=== PATIENT | male | born 1960 | race Two or more races ===

== ENCOUNTER 2024-06-22 14:22 | Emergency (ER) | payer MEDICAID, SELFPAY ==
[2024-06-22 14:39] VITALS: BP 158/75; PULSE 63; RESP 19; TEMP 36.8; O2SAT 96; BMI 27.4
--- NOTE | 2024-06-22 14:43 | XR_ITS ---
Examination: Fingers, left hand first digit 3 views Technique: AP, oblique, lateral views left hand first digit 3 views. Exam date and time: June 22, 2024 1451 hours INDICATIONS: Laceration injury to the first digit today with pain FINDINGS: Soft tissue defect adjacent to the distal first metacarpal No fracture No opaque foreign body IMPRESSION: No opaque foreign body
--- NOTE | 2024-06-22 16:20 | EDNOTE_ITS ---
ED Wound/Laceration-RME/HPI General Chief Complaint: Wound/Laceration Stated Complaint: Left 1st digit laceration this AM, refered by PC Time Seen by Provider: 06/22/24 14:34 Source: patient Arrival date/time: 06/22/24 14:22 This is a 63-year-old male who presents to the emergency department with complaints of a laceration to his first digit left hand. Patient states he was using a saw to cut wood when he accidentally cut vertically on his left thumb. Patient is that he did states he has full range of motion/ and sensation of thumb. patient was seen at his PCPs office however they were unable to suture. Limitations: no limitations Related Data Previous Rx's ?Medication ?Instructions ?Recorded cephalexin 500 mg capsule 500 mg PO BID 5 days #10 caps 06/22/24 ibuprofen 800 mg tablet (IBU) 800 mg PO Q8H #20 tabs 06/22/24 Allergies Allergy/AdvReac Type Severity Reaction Status Date / Time Penicillins Allergy Verified 06/22/24 14:29 Review of Systems Review of Systems Systems Reviewed: All systems reviewed, normal except as documented Narrative Review of Systems: Gen: No fever, no chills, no weight loss EYES: No discharge, no visual changes, no pain HEENT: No ear pain, no congestion, no sore throat PULM: No shortness of breath, no cough, no congestion CV: No chest pain, no dyspnea on exertion, no palpitations GI: No nausea, no vomiting, no diarrhea, no pain, no constipation : No frequency, no urgency,? no dysuria Musc/skel: No joint pain, no back pain Skin: laceration thumb Psyc: No hallucinations, no depression Heme/Lymph: No easy bleeding or bruising tendencies Neuro: No weakness, no headache ED Exam General Limitations: Present no limitations General appearance: Present alert and in no apparent distress Head Head exam: Present atraumatic Eye Eye exam: Present normal appearance, PERRL and EOMI ENT ENT exam: Present normal exam, normal oropharynx and mucous membranes moist Neck Neck exam: Present normal inspection, full ROM and trachea midline Chest Chest inspection: Present normal inspection and symmetric chest wall rise Respiratory Respiratory exam: Present normal lung sounds bilaterally Cardiovascular Cardiovascular exam: Present regular rate, normal rhythm and normal heart sounds Abdominal Exam Abdominal exam: Present soft and normal bowel sounds Extremities Exam Extremities exam: Present normal inspection and full ROM Expanded Upper Extremity Exam Shoulder exam: Present normal inspection Arm exam: Present normal inspection Elbow exam: Present normal inspection Hand L/R back image: 2 1. +3cm laceration noted to left medial aspect of 1st digit. CMS intact. Back Exam Back exam: Present normal inspection and full ROM Neurological Exam Neurological exam: Present alert, oriented X3 and CN II-XII intact Psychiatric Psychiatric exam: Present normal affect and normal mood Skin Skin exam: Present warm, dry, intact and normal color Course Quality Measures none Orders Category Date Time Status Set Up Suture Tray STAT Care 06/22/24 14:43 Completed Wound Care NOW Care 06/22/24 14:43 Completed XR finger LT min 2V Stat Exams 06/22/24 14:43 Completed Vital Signs Vital signs: Vital Signs Temperature 98.2 F 06/22/24 14:39 Pulse Rate 63 06/22/24 14:39 Respiratory Rate 19 06/22/24 14:39 Blood Pressure 158/75 H 06/22/24 14:39 Pulse Oximetry (%) 96 06/22/24 14:39 Oxygen Delivery Method Room Air 06/22/24 14:39 Procedures -ED Laceration Laceration 1: Site: other (left thumb) Side (If applicable): left Size (cm): 3 Description: linear and irregular Depth: simple, single layer Local Anesthetic: lidocaine 1% Amount of anesthesia used (mL): 10 Pre-repair: wound explored, irrigated extensively and deep structures intact Skin layer closed with: vicryl Size (cm): 4-0 Number of sutures: 7 Technique: simple, interrupted Wound / Laceration MDM Narrative MDM Narrative:: Patient wound cleansed with Betadine and sterile saline before procedure. Patient tolerated procedure well see procedure note. No tetanus was given today patient had 1 approximately 4 years ago. Patient will be started on empiric antibiotics due to the nature of the wound. Patient is to follow-up to have a wound recheck in 2 days with his PCP. or ER precautions given Patient data External records reviewed:: [facility] previous records Clinical information provided by:: patient and none Social determinants that could affect healthcare access:: none Patient has the following chronic illnesses:: no How is presenting disease/condition affected by chronic disease/condition?: no chronic disease Evaluation data The following diagnostics were reviewed and interpreted by me:: radiology exam(s) Lab and/or radiology exams considered but not ordered:: no Interpretation Summary: Examination: Fingers, left hand first digit 3 views Technique: AP, oblique, lateral views left hand first digit 3 views. Exam date and time: June 22, 2024 1451 hours INDICATIONS: Laceration injury to the first digit today with pain FINDINGS: Soft tissue defect adjacent to the distal first metacarpal No fracture No opaque foreign body IMPRESSION: No opaque foreign body Medications / Prescriptions Medications or Prescriptions considered but not ordered:: rx abx Medication administrations:: yes lido Consultations Consultation(s) initiated? (list below): No Diagnosis Wound Differential Diagnosis: laceration, abscess, abrasion and avulsion of skin Most likely diagnosis given after review of the tests above:: LAceration Admission Indicated Admission indicated?: not indicated Admission Request Was there a request for admission?: No Disposition Plan Disposition Plan: Discharge Discharge Attestation Discharge Attestation: The patient and all family members were given an opportunity to ask questions and understood the discharge instructions. Discharge instructions specifically effects, indications for sooner follow up or return to the emergency department, and the expected course of current diagnosis. Patient condition: Stable Discharge Plan Plan Patient Disposition: HOME (Self Care) Patient condition on transfer: Stable Prescriptions/Referrals Prescriptions/Med Rec: New cephalexin 500 mg capsule 500 mg PO BID 5 Days Qty: 10 0RF ibuprofen [IBU] 800 mg tablet 800 mg PO Q8H Qty: 20 0RF Referrals: Shannan Cronin FNP ([id number]) [Primary Care Provider] - In 1 week Problem List Clinical Impression: Laceration Patient/Caregiver Discharge Instructions Discharge Activity: activity as tolerated Education Materials: ED Laceration, Hand: All Closures Additional Instructions: Please have your wound rechecked and 7 to 10 days. Please follow up with Primary Doctor in 7-10 day for suture removal. Please return to ER if theres is any sign of infection. Please keep wound clean and dry. Take antibiotics as directed. Print Language: Lithuanian Stand Alone Forms: Jolene Award Info., Patient Portal Info Letter CHRISTIE/CANDELARIO Supervising Physician CHRISTIE/CANDELARIO Supervising Physician: Dr Lyle
== END 2024-06-22 16:45 | disposition home or self-care (01) ==
PROVIDERS: Emergency Provider Emergency Medicine; PCP Nurse Practitioner Primary Care
DX: S61.012A Laceration without foreign body of left thumb without damage to nail, initial encounter (principal); W27.0XXA Contact with workbench tool, initial encounter
CPT/HCPCS: 12002; 73140; 99283